=== PATIENT | male | born 1945 | race Caucasian/White ===

== ENCOUNTER 2017-11-13 13:32 | Emergency (ER) | payer MEDICARE, BC ==
[2017-11-13] MEDS ORDERED: Sodium Chloride 0.9% 1000 ML 1,000 ML IV STA (13:47)
--- NOTE | 2017-11-13 13:53 | ERPHSYRPT ---
- History of Present Illness Time Seen by Provider: 11/13/17 13:50 Source: EMS Exam Limitations: clinical condition Physician History: hx Shy-Drager Syn, pt became unresponsive at 12:30pm today, no injury, no emesis , hx seizure Witnessed: by family Allergies/Adverse Reactions: No Known Drug Allergies Allergy (Unverified 03/10/14 02:24) Home Medications: Divalproex Sodium [Divalproex Sodium ER] 500 mg PO UD 04/15/15 [History] Finasteride 5 mg [Proscar 5 MG] 5 mg PO DAILY 04/15/15 [History] Fludrocortisone Acetate 0.1 mg PO DAILY 04/15/15 [History] Hx Tetanus, Diphtheria Vaccination/Date Given: No Hx Influenza Vaccination/Date Given: Yes Hx Pneumococcal Vaccination/Date Given: No - Past Medical History Pertinent Past Medical History: Yes Neurological History: Seizures ENT History: No Pertinent History Cardiac History: Other Respiratory History: No Pertinent History Endocrine Medical History: No Pertinent History Musculoskeletal History: Arthritis, Degenerative Disk Disease, Osteoarthritis GI Medical History: No Pertinent History History: Other Psycho-Social History: No Pertinent History Male Reproductive Disorders: No Pertinent History, Prostate Problems Other Medical History: shy-drager syndrome - Past Surgical History Past Surgical History: Yes Gastrointestinal: Cholecystectomy Other Surgical History: tonsilectomy - Social History Smoking Status: Former smoker Exposure to second hand smoke: No Drug Use: none Patient Lives Alone: No - Review of Systems Constitutional: No Fever Respiratory: No Cyanosis Psychological: Other (pt unable to provide ros) Physical Exam - Nursing Vital Signs Nursing Vital Signs: Initial Vital Signs Pulse Rate 58 L 11/13/17 13:45 Respiratory Rate 24 11/13/17 13:45 Blood Pressure 158/96 11/13/17 13:45 O2 Sat by Pulse Oximetry 96 11/13/17 13:45 - [place] Coma Scale Best Eye Response (Milagros): (2) open to pain Best Verbal Response (Milagros): (2) incomprehsible sounds Best Motor Response (Milagros): (5) localizes to pain [place] Total: 9 - Physical Exam General Appearance: no apparent distress Eye Exam: bilateral eye: PERRL Ears, Nose, Throat Exam: moist mucous membranes Neck Exam: normal inspection Respiratory: lungs clear Cardiovascular: regular rate/rhythm Gastrointestinal: soft, No tenderness Extremity Exam: normal inspection, pelvis stable Mental Status: unresponsive, No cooperative Skin Exam: warm, dry - Course Nursing assessment & vital signs reviewed: Yes - CT Exams Head CT Interpretation: Discussed w/radiologist, No/Intracranial Hemorrhag Ordered Tests: Active Orders 24 hr Category Date Time Status Accucheck STAT Care 11/13/17 13:47 Active Podiatric Surgeon STAT Care 11/13/17 13:47 Active Catheter-[place] Thakur STAT Care 11/13/17 13:47 Active EKG-ER Only STAT Care 11/13/17 13:47 Active IV Insertion STAT Care 11/13/17 13:47 Active NPO (ED) STAT Care 11/13/17 13:47 Active CHEST 1 VIEW (PORTABLE) Stat Exams 11/13/17 13:47 Taken HEAD WITHOUT CONTRAST [CT] Stat Exams 11/13/17 13:33 Taken ARTERIAL BLOOD GASES Urgent Lab 11/13/17 13:47 Ordered CBC W DIFF Stat Lab 11/13/17 14:00 Completed CMP Stat Lab 11/13/17 14:00 Completed Lactic Acid Stat Lab 11/13/17 13:47 Completed Manual Differential NC Stat Lab 11/13/17 14:00 Completed PROTIME WITH INR Stat Lab 11/13/17 14:00 Completed TROPONIN Q3H Lab 11/13/17 14:00 Received TROPONIN Q3H Lab 11/13/17 17:00 Ordered TROPONIN Q3H Lab 11/13/17 20:00 Ordered TROPONIN Q3H Lab 11/13/17 23:00 Ordered UA W/RFX UR CULTURE Stat Lab 11/13/17 13:47 Ordered Medication Summary Discontinued Medications Generic Name Dose Route Start Last Admin Trade Name Ez PRN Reason Stop Dose Admin Sodium Chloride 1,000 mls @ 999 mls/hr 11/13/17 13:47 Sodium Chloride 0.9% 1000 Ml IV 11/13/17 14:47 .Q1H1M STA Sodium Chloride Confirm 11/13/17 14:25 Sodium Chloride 0.9% 1000 Ml Administered 11/13/17 14:26 Dose 2,000 mls @ ud .ROUTE .STK-MED ONE Lab/Rad Data: Laboratory Result Diagrams 11/13/17 14:00 11/13/17 14:00 Laboratory Results 11/13/17 11/13/17 11/13/17 Range/Units 14:00 14:00 14:00 WBC 7.2 (4.0-10.5) K/mm3 RBC 4.53 (4.1-5.6) M/mm3 Hgb 14.4 (12.5-18.0) gm/dl Hct 42.5 (42-50) % MCV 93.8 (78-100) fl MCH 31.8 (26-32) pg MCHC 33.9 (32-36) g/dl RDW 12.5 (11.5-14.0) % Plt Count 204 (150-450) K/mm3 MPV 9.1 (6-9.5) fl Absolute Granulocytes 5.36 (1.4-6.9) Segmented Neutrophils 81 H (36.-66.) % Lymphocytes (Manual) 13 L (24-44) % Monocytes (Manual) 4 (0.0-12.0) % Eosinophils (Manual) 2 (0.00-3.0) % Platelet Estimate NORMAL (NORMAL) RBC Morphology NORMAL PT 13.9 H (8.83-12.87) SECONDS INR 1.19 (0.8-3.0) Sodium 137 (137-145) mmol/L Potassium 4.4 (3.5-5.1) mmol/L Chloride 105 (98-107) mmol/L Carbon Dioxide 23 (22-30) mmol/L Anion Gap 12.8 (5-15) MEQ/L BUN 23 H (9-20) mg/dL Creatinine 1.24 (0.66-1.25) mg/dL Estimated GFR > 60.0 ML/MIN Glucose 151 H (74-106) mg/dL Lactic Acid (0.4-2.0) Calcium 8.8 (8.4-10.2) mg/dL Total Bilirubin 1.00 (0.2-1.3) mg/dL AST 18 (17-59) U/L ALT 19 (0-50) U/L Alkaline Phosphatase 77 (38-126) U/L Serum Total Protein 6.4 (6.3-8.2) g/dL Albumin 3.4 L (3.5-5.0) g/dL 11/13/17 Range/Units 13:47 WBC (4.0-10.5) K/mm3 RBC (4.1-5.6) M/mm3 Hgb (12.5-18.0) gm/dl Hct (42-50) % MCV (78-100) fl MCH (26-32) pg MCHC (32-36) g/dl RDW (11.5-14.0) % Plt Count (150-450) K/mm3 MPV (6-9.5) fl Absolute Granulocytes (1.4-6.9) Segmented Neutrophils (36.-66.) % Lymphocytes (Manual) (24-44) % Monocytes (Manual) (0.0-12.0) % Eosinophils (Manual) (0.00-3.0) % Platelet Estimate (NORMAL) RBC Morphology PT (8.83-12.87) SECONDS INR (0.8-3.0) Sodium (137-145) mmol/L Potassium (3.5-5.1) mmol/L Chloride (98-107) mmol/L Carbon Dioxide (22-30) mmol/L Anion Gap (5-15) MEQ/L BUN (9-20) mg/dL Creatinine (0.66-1.25) mg/dL Estimated GFR ML/MIN Glucose (74-106) mg/dL Lactic Acid 1.5 (0.4-2.0) Calcium (8.4-10.2) mg/dL Total Bilirubin (0.2-1.3) mg/dL AST (17-59) U/L ALT (0-50) U/L Alkaline Phosphatase (38-126) U/L Serum Total Protein (6.3-8.2) g/dL Albumin (3.5-5.0) g/dL - Progress Progress: unchanged Progress Note: 11/13/17 14:53 pt accepted to ICU at [facility] by Melia Hurtado 11/13/17 14:54 pt intubated w/ 7.5 ET tube and glide scope by RT, using Versed, Suc and Propofol drip - Departure Time of Disposition: 14:54 Departure Disposition: Transfer Clinical Impression: Syncope and collapse Condition: Stable Critical Care Time: No Referrals: Provider,Unknown [Primary Care Provider] -
[2017-11-13 14:07] LABS: Granulocyte Absolute (ANC) 5.36 (1.4-6.9); Hematocrit 42.5 % (42-50); Hemoglobin 14.4 gm/dl (12.5-18.0); Mean Cell Volume 93.8 fl (78-100); Mean Corpuscular Hemoglobin 31.8 pg (26-32); Mean Corpuscular Hgb Concent. 33.9 g/dl (32-36); Mean Platelet Volume 9.1 fl (6-9.5); Platelet Count 204 K/mm3 (150-450); Red Blood Count 4.53 M/mm3 (4.1-5.6); Red Cell Distribution Width 12.5 % (11.5-14.0); White Blood Count 7.2 K/mm3 (4.0-10.5)
[2017-11-13] MEDS ORDERED: Sodium Chloride 0.9% 1000 ML 2,000 ML ONE (14:25)
[2017-11-13 14:26] LABS: INR 1.19 (0.8-3.0)
[2017-11-13 14:31] LABS: Eosinophil 2 % (0.00-3.0); Lymphocytes 13 % (24-44); Monocyte 4 % (0.0-12.0); Neutrophils 81 % (36.-66.); Total Cells Counted 100
[2017-11-13 14:34] LABS: Platelet Estimate NORMAL (NORMAL)
[2017-11-13 14:48] LABS: ALBUMIN 3.4 g/dL (3.5-5.0); ALKALINE PHOSPHATASE 77 U/L (38-126); ANION GAP 12.8 MEQ/L (5-15); BLOOD UREA NITROGEN 23 mg/dL (9-20); CHLORIDE 105 mmol/L (98-107); Calcium 8.8 mg/dL (8.4-10.2); Carbon Dioxide 23 mmol/L (22-30); Creatinine 1 1.24 mg/dL (0.66-1.25); Glucose 151 mg/dL (74-106); Potassium 4.4 mmol/L (3.5-5.1); SGOT/AST 18 U/L (17-59); SGPT/ALT 19 U/L (0-50); SODIUM 137 mmol/L (137-145); Total Protein 6.4 g/dL (6.3-8.2)
[2017-11-13 15:06] LABS: A-aADO2 424; ABG HEMOGLOBIN 14.2; ABG POTASSIUM 4.1 (3.5-5.1); ARTERIAL BLD GAS O2 SATURATION 95.3 % (95-100); ARTERIAL BLD GAS TIDAL VOLUME 700 cc; ARTERIAL BLOOD GAS BASE EXCESS -0.7 (-2.0-2.0); ARTERIAL BLOOD GAS FIO2 80 %; ARTERIAL BLOOD GAS PCO2 40 mmHg (35-45); ARTERIAL BLOOD GAS PEEP 3 cmH2O; ARTERIAL BLOOD GAS PO2 96 mmHg (75-100); ARTERIAL BLOOD GAS VENT MODE A/C; ARTERIAL BLOOD GAS pH 7.39 (7.35-7.45); HCO3- 24.2 (22-28); HGB O2 SAT 94.8 g/dF (94-100); Methhemoglobin 0.4 % (1.4-1.5); paO2 pAO1 0.18
[2017-11-13 15:07] LABS: ABG SITE RIGHT RADIAL; ALLEN TEST OK? YES
[2017-11-13] MEDS ORDERED: VERSED 5 MG/5 ML IV ONE (15:30)
[2017-11-13] MEDS ORDERED: DIPRIVAN 200 MG/20 ML IV ONE (15:30)
[2017-11-13] MEDS ORDERED: Quelicin Fliptop 200 MG/10 ML IV ONE (15:30)
[2017-11-13] MEDS ORDERED: DIPRIVAN 100ML BOTTLE 100 ML IV ONE (15:30)
[2017-11-13 15:45] VITALS: BP 134/79; PULSE 64; O2SAT 95
[2017-11-13 15:57] LABS: Appearance CLOUDY (CLEAR); Bilirubin NEGATIVE (NEGATIVE); Blood 250 Ery/ul (0-5); Glucose NEGATIVE (NEGATIVE); Ketones NEGATIVE (NEGATIVE); Leukocyte Esterase 2+ (NEGATIVE); Nitrite NEGATIVE (NEGATIVE); Protein,Urine Dip TRACE (Negative); Specific Gravity 1.025 (1.005-1.025); Urobilinogen NORMAL mg/dL (0-1)
[2017-11-13 16:11] LABS: Bacteria MODERATE /HPF (NEGATIVE); Epithelial Cells FEW /HPF (FEW); WBC 50-100 /HPF (0-5)
--- NOTE | 2017-11-13 16:12 | XRAY ---
Indication: Acute mental status change. Multiple contiguous axial images obtained through the head without contrast. Comparison: April 15, 2015. Several images slightly degraded by motion artifact. Stable age-appropriate global atrophy and minimal periventricular degenerative microischemia. Again no acute intracranial hemorrhage, abnormal extra-axial fluid collection, or mass effect. Fourth ventricle is midline without hydrocephalus. Bony calvarium intact. Minimal right maxillary sinus mucosal thickening. Remaining visualized paranasal sinuses and mastoid air cells are clear. Impression: Motion artifact. Grossly stable nonacute senile brain. Minimal right maxillary sinus disease. Comment: Preliminary interpretation was made by [facility]. No critical discrepancy. CTDI 55.46
--- NOTE | 2017-11-13 16:14 | XRAY ---
Indication: ET tube placement. Comparison: September 14, 2016. Portable chest demonstrates new endotracheal tube tip 2.5 cm above the daniela. Lungs are markedly underinflated accentuating the cardiopulmonary structures with right base subsegmental atelectasis. Heart is borderline enlarged. Bony thorax intact with mild degenerative changes and numerous overlying monitoring leads. Impression: Endotracheal tube tip in good position. Grossly nonacute underinflated chest.
== END 2017-11-13 15:17 | disposition short-term general hospital (02) ==
LOC: ED 13:32
DX: R55 Syncope and collapse (principal); Z79.899 Other long term (current) drug therapy; Z86.69 Personal history of other diseases of the nervous system and sense organs
CPT/HCPCS: 31500; 36415; 36600; 51702; 70450; 71045; 80053; 81000; 82375; 82803; 82962; 83605; 84484; 85025; 85610; 87086; 93005; 93041; 94002; 94799; 96360; 96365; 96374; 96375; 99285; 99291; 99292; J0330; J2704

== ENCOUNTER 2019-05-18 11:24 | Emergency (ER) | payer MEDICARE, BC ==
--- NOTE | 2019-05-18 11:42 | ERPHSYRPT ---
- History of Present Illness Time Seen by Provider: 05/18/19 11:25 Source: patient, family Physician History: 73-year-old male history of hypertension and chronic syncope do to orthostatic changes present from primary care today for evaluation of a mechanical fall after syncope yesterday. Patient to take blood since yesterday which is not uncommon for him, but after using the restroom. He did strike the left side of his fore head on the ground which was carpeted. He came to rather quickly. He also jammed the right thumb and has swelling and bruising about the right hand today which concerned him and his . He followed up today with his primary care physician who sent him here for evaluation. does state that after one of the episodes yesterday he was "not speaking clearly" for several seconds that returned to normal. He denies focal numbness or weakness chest pain shortness of breath abdominal pain or other complaints currently. He did not dorsal any pain at all. PMH: The patient versus history of hypertension Social: Patient is a former smoker, currently lives at home with his is chronically ill and weak over the last 3-4 months, reports he is at his baseline today Allergies/Adverse Reactions: No Known Drug Allergies Allergy (Verified 05/18/19 11:46) Home Medications: Divalproex Sodium [Divalproex Sodium ER] 500 mg PO UD 04/15/15 [History] Finasteride 5 mg [Proscar 5 MG] 5 mg PO DAILY 04/15/15 [History] Fludrocortisone Acetate 0.1 mg PO DAILY 04/15/15 [History] Hx Tetanus, Diphtheria Vaccination/Date Given: No Hx Influenza Vaccination/Date Given: Yes Hx Pneumococcal Vaccination/Date Given: No - Review of Systems Constitutional: No Fever, No Chills Eyes: No Symptoms Ears, Nose, & Throat: No Symptoms Respiratory: No Cough, No Dyspnea Cardiac: No Chest Pain, No Edema, No Syncope Abdominal/Gastrointestinal: No Abdominal Pain, No Nausea, No Vomiting, No Diarrhea Genitourinary Symptoms: No Dysuria Musculoskeletal: No Back Pain, No Neck Pain Skin: Other (patient endorses right hand bruising and swelling, left forehead abrasion), No Rash Neurological: Other (historian endorses acute on chronic syncopal episodes), No Dizziness, No Focal Weakness, No Sensory Changes Psychological: No Symptoms Endocrine: No Symptoms All Other Systems: Reviewed and Negative - Past Medical History Pertinent Past Medical History: Yes Neurological History: Seizures ENT History: No Pertinent History Cardiac History: Other Respiratory History: No Pertinent History Endocrine Medical History: No Pertinent History Musculoskeletal History: Arthritis, Degenerative Disk Disease, Osteoarthritis GI Medical History: No Pertinent History History: Other Psycho-Social History: No Pertinent History Male Reproductive Disorders: No Pertinent History, Prostate Problems Other Medical History: shy-drager syndrome - Past Surgical History Past Surgical History: Yes Gastrointestinal: Cholecystectomy Other Surgical History: tonsilectomy - Social History Smoking Status: Former smoker Exposure to second hand smoke: No Drug Use: none Patient Lives Alone: No - Nursing Vital Signs Nursing Vital Signs: Initial Vital Signs Temperature 97.6 F 05/18/19 11:35 Pulse Rate 61 05/18/19 11:35 Respiratory Rate 18 05/18/19 11:35 Blood Pressure 93/56 05/18/19 11:35 O2 Sat by Pulse Oximetry 95 05/18/19 11:35 Pain Scale Pain Intensity 4 - [place] Coma Score Best Eye Response (Milagros): (4) open spontaneously Best Verbal Response (Milagros): (5) oriented Best Motor Response (Milagros): (6) obeys commands [place] Total: 15 - Physical Exam General Appearance: no apparent distress, alert Head Injury: contusions (superficial abrasions x2 over the left forehead), ecchymosis, No tenderness Eye Exam: PERRL/EOMI ENT Exam: airway nml Neck Exam: normal inspection, No tenderness Respiratory/Chest Exam: normal breath sounds, No chest tenderness, No respiratory distress Cardiovascular Exam: normal heart sounds, regular rate/rhythm Gastrointestinal Exam: soft, No tenderness, No distention, No guarding, No ecchymosis Back Exam: normal inspection, No vertebral tenderness Extremity Exam: normal inspection, normal range of motion, pelvis stable, No deformities Neurologic Exam: alert, oriented x 3, cooperative, sensation nml, No motor deficits Skin Exam: normal color, warm, dry, ecchymosis (extensive ecchymosis over the web of the right hand) - Course EKG Interpreted by Me: RATE (61), Other (ventricular paced rhythm, normal [place],, QRS 1 A0, QTC prolonged 516, no ST segment changes consistent with acute ischemia) Ordered Tests: Active Orders 24 hr Category Date Time Status EKG-ER Only STAT Care 05/18/19 11:44 Active HAND (MINIMUM 3 VIEWS) Stat Exams 05/18/19 12:08 Taken HEAD WITHOUT CONTRAST [CT] Stat Exams 05/18/19 11:43 Completed BMP Stat Lab 05/18/19 11:55 Completed CBC W DIFF Stat Lab 05/18/19 11:55 Completed TROPONIN Q3H Lab 05/18/19 11:55 Received Lab/Rad Data: Laboratory Result Diagrams 05/18/19 11:55 05/18/19 11:55 Laboratory Results 05/18/19 05/18/19 Range/Units 11:55 11:55 WBC 8.6 (4.0-10.5) K/mm3 RBC 4.69 (4.1-5.6) M/mm3 Hgb 14.9 (12.5-18.0) gm/dl Hct 44.7 (42-50) % MCV 95.3 (78-100) fl MCH 31.8 (26-32) pg MCHC 33.3 (32-36) g/dl RDW 12.8 (11.5-14.0) % Plt Count 183 (150-450) K/mm3 MPV 9.0 (6-9.5) fl Gran % 73.2 H (36.0-66.0) % Eos # (Auto) 0.16 (0-0.5) Absolute Lymphs (auto) 1.35 (1.0-4.6) Absolute Monos (auto) 0.76 (0.0-1.3) Lymphocytes % 15.6 L (24.0-44.0) % Monocytes % 8.8 (0.0-12.0) % Eosinophils % 1.9 (0.00-5.0) % Basophils % 0.5 (0.0-0.4) % Absolute Granulocytes 6.33 (1.4-6.9) Basophils # 0.04 (0-0.4) Sodium 140 (137-145) mmol/L Potassium 4.9 (3.5-5.1) mmol/L Chloride 105 (98-107) mmol/L Carbon Dioxide 32 H (22-30) mmol/L Anion Gap 8.5 (5-15) MEQ/L BUN 24 H (9-20) mg/dL Creatinine 1.17 (0.66-1.25) mg/dL Estimated GFR > 60.0 ML/MIN Glucose 105 (74-106) mg/dL Calcium 8.8 (8.4-10.2) mg/dL - Progress Progress: unchanged Progress Note: patient without ischemic changes on EKG. Bloodwork largely unremarkable. second episode of syncope yesterday likely secondary to chronic conditions. Patient has no pain at this time. Head CT unremarkable. hand x-ray without acute fractures or dislocations. reports his blood pressure is always low where it is today which is also reassuring. overall, the patient remains hemodynamically stable for him and is appropriate for discharge with return to primary care physician for further workup. Patient's spouse was understanding return precautions. 05/18/19 12:23 - Departure Departure Disposition: Home Clinical Impression: Syncope, Syncope and collapse Condition: Stable Critical Care Time: No Referrals: LEN RAMIREZ MD [Primary Care Provider] - Instructions: Preventing Falls, Contusion (DC) Additional Instructions: Please return to her primary care physician's office for further followup as needed, or return to the emergency department for any new or concerning symptoms. Your workup in the emergency department was unremarkable with normal labs and and no concerning findings on CT scans or x-rays.
[2019-05-18 12:00] LABS: Absolute Neutrophil Ct (ANC) 6.33 (1.4-6.9); BASOPHIL % 0.5 % (0.0-0.4); Basophil (Absolute #) 0.04 (0-0.4); Eosinophil % 1.9 % (0.00-5.0); Eosinophil (Absolute #) 0.16 (0-0.5); Hematocrit 44.7 % (42-50); Hemoglobin 14.9 gm/dl (12.5-18.0); Lymphocyte (Absolute #) 1.35 (1.0-4.6); Lymphocytes % 15.6 % (24.0-44.0); Mean Cell Volume 95.3 fl (78-100); Mean Corpuscular Hemoglobin 31.8 pg (26-32); Mean Corpuscular Hgb Concent. 33.3 g/dl (32-36); Monocyte (Absolute #) 0.76 (0.0-1.3); Monocytes % 8.8 % (0.0-12.0); Neutrophil % 73.2 % (36.0-66.0); Platelet Count 183 K/mm3 (150-450); Red Blood Count 4.69 M/mm3 (4.1-5.6); Red Cell Distribution Width 12.8 % (11.5-14.0); White Blood Count 8.6 K/mm3 (4.0-10.5)
[2019-05-18 12:11] LABS: ANION GAP 8.5 MEQ/L (5-15); BLOOD UREA NITROGEN 24 mg/dL (9-20); CHLORIDE 105 mmol/L (98-107); Calcium 8.8 mg/dL (8.4-10.2); Carbon Dioxide 32 mmol/L (22-30); Creatinine 1 1.17 mg/dL (0.66-1.25); Glucose 105 mg/dL (74-106); Potassium 4.9 mmol/L (3.5-5.1); SODIUM 140 mmol/L (137-145)
--- NOTE | 2019-05-18 12:20 | XRAY ---
Indication: Pain/laceration following fall. Multiple contiguous axial images obtained through the head without contrast. Comparison: November 13, 2017. Stable age-appropriate global atrophy and minimal periventricular degenerative micro-ischemia. No acute intracranial hemorrhage, abnormal extra-axial fluid question, or mass effect. Fourth ventricle is midline without hydrocephalus. [place]-white matter differentiation preserved. Bony calvarium intact. Again minimal right maxillary sinus mucosal thickening. Remaining visualized paranasal sinuses and mastoid air cells are clear. Impression: Again nonacute senile brain. CTDI 41.61
--- NOTE | 2019-05-18 12:26 | XRAY ---
Indication: Pain following fall. Comparison: None 3 views of the right hand demonstrates mild osteopenia, advanced 1st metacarpal multangular degenerative changes, and small scaphoid bone cyst. No other bony, articular, or soft tissue abnormalities.
[2019-05-18 13:23] VITALS: BP 126/71; PULSE 70; O2SAT 98
== END 2019-05-18 13:22 | disposition home or self-care (01) ==
LOC: ED 11:24
DX: R55 Syncope and collapse (principal); I10 Essential (primary) hypertension; S00.81XA Abrasion of other part of head, initial encounter; W19.XXXA Unspecified fall, initial encounter; Y93.9 Activity, unspecified; Y92.89 Other specified places as the place of occurrence of the external cause; Y99.9 Unspecified external cause status; G40.909 Epilepsy, unspecified, not intractable, without status epilepticus; M19.90 Unspecified osteoarthritis, unspecified site; G90.3 Multi-system degeneration of the autonomic nervous system
CPT/HCPCS: 36415; 70450; 73130; 80048; 84484; 85025; 93005; 99284